=== PATIENT | male | born 1940 | race Caucasian/White ===

== ENCOUNTER 2019-12-17 10:23 | Day surgery (SDC) | payer MEDICARE, OTHER ==
[~2019-12-17] VITALS: Ht 182.9 cm; Wt 94.5 kg
[~2019-12-17 10:23] MED LIST: CEFAZOLIN 1,000 MG ONE; PROPOFOL 10 MG/ML, 20ML ONE
[2019-12-17] MEDS ORDERED: DIPH1TAB6 PO (10:52)
[2019-12-17] MEDS ORDERED: BENA20TA5 PO (10:52)
[2019-12-17] MEDS ORDERED: FLUT16SP24 NAS (10:52)
[2019-12-17] MEDS ORDERED: PANT40TA6 PO (10:52)
[2019-12-17] MEDS ORDERED: METF-754 PO (10:52)
[2019-12-17] MEDS ORDERED: ALFU10TA4 PO (10:52)
[2019-12-17] MEDS ORDERED: ROSU10TA26 PO (10:52)
[2019-12-17] MEDS ORDERED: ERYT1OIN5 EACHEYE (10:52)
[2019-12-17] MEDS ORDERED: TADA5TAB13 PO (10:52)
[2019-12-17] MEDS ORDERED: LIDOCAINE-MPF 1%, 2ML INFIL ONE (11:00)
[2019-12-17] MEDS ORDERED: LACTATED RINGERS 1,000 ML IV SCH (11:00)
[2019-12-17] MEDS ORDERED: CHLORHEXIDINE 15 ML UDC MM ONE (11:00)
[2019-12-17 11:28] VITALS: BP 136/76
[2019-12-17 11:46] LABS: ALANINE AMINOTRANSFERASE 32 U/L (12-78); ALBUMIN 3.8 g/dL (3.4-5.0); ANION GAP 6 mmol/L (5-15); CHLORIDE 107 mmol/L (98-107); CREATININE 0.99 mg/dL (0.7-1.3)
[2019-12-17 11:48] LABS: ALKALINE PHOSPHATASE 42 U/L (45-117); BILIRUBIN,TOTAL 0.5 mg/dL (0.2-1.0); CALCIUM 10.1 mg/dL (8.5-10.1); TOTAL PROTEIN 7.1 g/dL (6.4-8.2)
[2019-12-17] MEDS ORDERED: FENTANYL PF 250 MCG/5ML ONE (12:32)
[2019-12-17] MEDS ORDERED: BUPIVACAINE/PF 0.25% ONE (12:37)
[2019-12-17] MEDS ORDERED: FENTANYL PF 100 MCG/2ML IV PRN (13:00)
[2019-12-17] MEDS ORDERED: ONDANSETRON 2MG/ML, 2ML IVPush PRN (13:00)
[2019-12-17] MEDS ORDERED: LABETALOL 5MG/ML, 20ML IV PRN (13:00)
[2019-12-17] MEDS ORDERED: morphine SULFATE 10 MG/ML, 1ML IVPush PRN (13:00)
[2019-12-17] MEDS ORDERED: ACETAMINOPHEN 325 MG TABLET PO PRN (13:00)
[2019-12-17] MEDS ORDERED: HYDROmorphone 1 MG/ML, 1ML INJ IVPush PRN (13:00)
[2019-12-17] MEDS ORDERED: OXYcodone 5 MG/5 ML ORAL.SOL UDC PO PRN (13:00)
[2019-12-17] MEDS ORDERED: hydrALAzine 20 MG/ML, 1ML IV PRN (13:00)
[2019-12-17] MEDS ORDERED: MEPERIDINE/PF 25MG/0.5ML IVPush PRN (13:00)
[2019-12-17] MEDS ORDERED: BACITRACIN OINT 500U/GM, 15 GM ONE (13:48)
[2019-12-17] MEDS ORDERED: ACETAMINOPHEN 650 MG/20.3 ML UDC ONE (14:53)
== END 2019-12-17 16:30 | disposition home or self-care (01) ==
LOC: OUT 10:23
PROVIDERS: ATTEND Urology
DX: N50.89 Other specified disorders of the male genital organs (principal); N50.811 Right testicular pain; Z20.828 Contact with and (suspected) exposure to other viral communicable diseases; N40.1 Benign prostatic hyperplasia with lower urinary tract symptoms; N39.498 Other specified urinary incontinence; R35.1 Nocturia; N52.9 Male erectile dysfunction, unspecified; I10 Essential (primary) hypertension; E11.9 Type 2 diabetes mellitus without complications; E78.5 Hyperlipidemia, unspecified; I44.7 Left bundle-branch block, unspecified; K21.9 Gastro-esophageal reflux disease without esophagitis; Z79.82 Long term (current) use of aspirin; Z79.84 Long term (current) use of oral hypoglycemic drugs; Z79.899 Other long term (current) drug therapy; Z88.8 Allergy status to other drugs, medicaments and biological substances; Z91.040 Latex allergy status; Z85.46 Personal history of malignant neoplasm of prostate
CPT/HCPCS: 36415; 54512; 55250; 80053; 82962; 87635; 88304; 88305; 93005; J0690; J2704; J3010; J7120